=== PATIENT | male | born 1945 | race Caucasian/White ===

== ENCOUNTER → 2019-06-14 | Outpatient (CLI) | payer MEDICARE, OTHER ==
[2016-09-12 16:30] VITALS: BP 130/63
--- NOTE | 2019-06-14 11:53 | RAD ---
FOOT RIGHT 3V 06/14/2019 12:00 AM INDICATION: Foot pain COMPARISON: None available. TECHNIQUE: 3 views of the left foot are provided. FINDINGS/ IMPRESSION: 1. There is no acute fracture or dislocation. 2. There is moderate joint space narrowing involving the first tarsometatarsal joint with subcortical sclerosis and marginal osteophytosis compatible with mild to moderate osteoarthrosis. 3. Large marginal osteophyte noted along the dorsal margin of the talonavicular joint. 4. Moderate-sized plantar calcaneal enthesophyte. 5. No significant soft tissue swelling. Bone mineralization is within normal limits. Electronically signed by: Valerie Giles MD (06/14/2019 11:50 AM) [facility]
== END | disposition home or self-care (01) ==
LOC: RAD 10:49
PROVIDERS: ATTEND Podiatrist Foot & Ankle Surgery
DX: M19.071 Primary osteoarthritis, right ankle and foot (principal); M25.774 Osteophyte, right foot; M77.31 Calcaneal spur, right foot
CPT/HCPCS: 73630